=== PATIENT | female | born 1975 | race Caucasian/White ===

== ENCOUNTER 2016-07-29 07:57 | Day surgery (SDC) | payer OTHER ==
[~2016-07-29] VITALS: Ht 170.2 cm; Wt 61.0 kg
[~2016-07-29 07:57] MED LIST: ADVIL,NUPRIN,M200 MG PO; ENDOCET 5-3251 EACH PO; IBUPROFEN800 MG PO; Motrin PO; NATALCARE RX1 TABLET PO; Percocet 5/325,Endoc PO
[2016-07-29 08:20] VITALS: BP 127/76
[2016-07-29] MEDS ORDERED: LORTAB 5-325 M1 EACH PO (10:07)
[2016-07-29 11:10] VITALS: BP 138/65
[2016-07-29 11:55] VITALS: BP 102/64
== END 2016-07-29 12:11 | disposition home or self-care (01) ==
LOC: SDC 07:57
DX: N84.0 Polyp of corpus uteri (principal); N93.9 Abnormal uterine and vaginal bleeding, unspecified; Z82.49 Family history of ischemic heart disease and other diseases of the circulatory system; Z83.3 Family history of diabetes mellitus; Z88.0 Allergy status to penicillin; Z82.3 Family history of stroke; Z80.0 Family history of malignant neoplasm of digestive organs
CPT/HCPCS: 88305; J1100; J1580; J1885; J2250; J2405; J3010; J7050